=== PATIENT | female | born 1990 | race Caucasian/White ===

== ENCOUNTER 2025-04-02 13:14 | Inpatient (IN) | payer OTHER, SELFPAY ==
[2025-04-02] VITALS (9 sets, daily range): BP systolic 91–134; BP diastolic 50–63; PULSE 65–133; RESP 15–18; TEMP 36.5–38.4; O2SAT 97–100; BMI 34.6
--- NOTE | ~2025-04-02 | CT_ITS ---
CLINICAL HISTORY: diffuse abdominal pain, white count CT abdomen and pelvis with contrast Comparison: None provided Findings: CT abdomen: Trace bilateral pleural effusions with minimal linear atelectasis within the dependent portion of the lower lobes bilaterally. No focal bony lesions. Liver is enlarged measuring 25 cm in long axis. Focal fatty infiltration seen within the left lobe of the liver adjacent to the falciform ligament. No concerning hepatic mass lesions. Main portal vein is patent. Gallbladder surgically absent. Spleen, pancreas, and adrenal glands are unremarkable for acute findings. There slightly diminished enhancement throughout the left kidney. There is a 2 mm calculus within the upper pole of the left kidney without hydronephrosis. No ureteral calculi identified. Diffuse perinephric stranding tracking along the left retroperitoneum. Perinephric stranding is also seen surrounding the right kidney. No stones or hydronephrosis of the right kidney. No ureteral calculi. Small bowel loops are of normal caliber. No free air. CT pelvis: No bladder calculi identified. No significant bladder wall thickening. No focal areas of colonic wall thickening are identified. No findings of appendicitis. No adnexal masses. Trace free pelvic fluid. No free air. Impression: Slightly diminished enhancement of the left kidney with bilateral perinephric stranding, [id number]. This raises the possibility of bilateral pyelonephritis. Clinical correlation advised. This document has been electronically signed by: Bonilla Proctor MD on 04/02/2025 16:30:48
--- NOTE | 2025-04-02 13:24 | ECG_ITS ---
Test Reason : ELEVATED HR Blood Pressure : */* mmHG Vent. Rate : 134 BPM Atrial Rate : 134 BPM P-R Int : 132 ms QRS Dur : 78 ms QT Int : 274 ms P-R-T Axes : 60 19 240 degrees QTcB Int : 409 ms Sinus tachycardia Precordial T wave inversions-ischemia vs PE Abnormal ECG No previous ECGs available Referred By: Generic ED Physician Electronically Signed By: Jorge Luis Mott
--- NOTE | 2025-04-02 13:31 | ED_ITS ---
HPI - General Adult General Chief complaint: Abdominal Pain Stated complaint: Pain in upper abd, shaking, had a fever of 104.2 Time Seen by Provider: 04/02/25 14:13 Source: patient Mode of arrival: ambulatory Limitations: no limitations History of Present Illness ED Provider: JENIFER KINNEY PA-C HPI narrative: 34 year old female with no significant phmx presents to the ED today for evaluation of abdominal pain x3 days. Her pain originally began 3 days ago however resolved soon after voiding. The pain returned the following day (yesterday), originally around her umbilicus however now the pain seems to be localized to her lower abdomen and right flank. Reports one episode of emesis last night. No nausea or vomiting since. Normal nonbloody BM this morning. Reports burning with urination. Admits to associated headache, dizziness, fever (TMAX 104F last night). No known sick contacts. Surgical history includes cholecystectomy. Related Data Allergies Allergy/AdvReac Type Severity Reaction Status Date / Time No Known Allergies Allergy Verified 04/02/25 13:23 Review of Systems 2 Review of Systems: Yes all other systems are reviewed and are negative PMFSH Past Medical History Attestation statement: The following information was validated with the patient. Source: old records reviewed and nursing notes reviewed Social History Social History Smoked in Last 30 Days: No Use of substances other than those prescribed or required for medical reasons: No Advance Directives: No Advance Directives Information Provided: Yes Do you have a plan to hurt others: No Plan Patient : No Physical Exam ED Vital Signs: Vital Signs - 24 hr 04/02/25 13:19 04/02/25 15:57 04/02/25 16:07 Temperature 101.1 F H 101 F H 101.0 F H Pulse Rate 133 H 107 H Respiratory Rate 18 Blood Pressure 134/63 97/52 L Pulse Oximetry 99 Oxygen Delivery Method Room Air 04/02/25 16:41 04/02/25 17:17 Temperature 98.7 F Pulse Rate 103 H Respiratory Rate Blood Pressure 107/51 L Pulse Oximetry Oxygen Delivery Method BMI result Body Mass Index 34.6 febrile, tachycardic General: Well appearing, in no acute distress. Skin: Warm, dry, intact. No rashes or lesions. Head: Normocephalic, atraumatic. EENT: Hearing is intact b/l. Conjunctiva clear. Sclera is anicteric. PERRLA. EOM intact. Moist mucous membranes.? Neck: Supple without LAD. FROM. Trachea midline.? Cardiac: Chest wall symmetric. RRR Lungs: Normal respiratory effort without accessory muscle use. CTA bilaterally Abdomen: soft, ND/NT, no rebound/ guarding. negative parrish. negative rosving sign. no mcburney point tenderness. no CVAT b/l. Back: No midline spinous or paraspinal tenderness. No step off deformity. Ext: Upper and lower extremities atraumatic, without tenderness, deformity, swelling or erythema Neuro: AOx3. Normal speech. Ambulating with steady gait. Course Course Course Narrative: Rapid medical examination performed in triage by Mylene Ga PA-C. Patient is a 34 year old assigned female at presenting to the emergency department with abdominal pain, nausea, vomiting, and fever. Detailed physical exam and review of systems are deferred to the director of managed services. Labs ordered. Patient placed back in the waiting room pending room availability and results. Reevaluation(s) Reevaluation #1: 1440 -- CBC showing leukocytotis to 21.0 with left shift. no anemia, h&h stable. chemistry showing hypokalemia to 3, normal magnesium. no other acute electrolyte abnormality requiring intervention. no tahmina. liver function and lipase wnl. trop wnl. negative covid, flu,r sv. urine showing moderate blood + RBCs, moderate leukocyte esterase, 21-50 WBCs, 2+ urine bacteria however there is >20 squamous epithelial cells. it is unclear if this is a true UTI or contamination. will attempt to repeat sample. > patient meets SIRS criteria for sepsis at this time - lactic + blood cultures, IVF, IV abx ordered. > IV tylenol ordered for fever/ pain > IV potassium repletion ordered 1753 -- ct a/p showing findings concerning for bilateral pyelonephritis. discussed work up results with patient. her temp has improved with tylenol and toradol. discussed case with hospitalist sofy weir who has accepted patient admission to medicine. patient agreeable. Medications Administered Generic Name Dose Route Start Last Admin Trade Name Freq PRN Reason Stop Dose Admin Potassium Chloride 10 meq in 100 mls @ 100 mls/hr 04/02/25 14:45 04/02/25 17:32 Potassium Chloride/H20 IV 04/02/25 18:44 100 mls/hr Q1H JACK Administration Sodium Chloride 1,000 mls @ 999 mls/hr 04/02/25 17:00 04/02/25 17:00 Ns IV 04/02/25 18:00 999 mls/hr .Q1H1M JACK Administration Discontinued Medications Generic Name Dose Route Start Last Admin Trade Name Freq PRN Reason Stop Dose Admin Ceftriaxone Sodium 1 gm 04/02/25 14:45 04/02/25 14:56 Ceftriaxone Sodium 1 Gm Vial IVPUSH 04/02/25 14:46 1 gm ONCE ONE Administration Sodium Chloride 1,000 mls @ 999 mls/hr 04/02/25 14:30 04/02/25 15:50 Ns IV 04/02/25 15:30 Infused .Q1H1M JACK Infusion Acetaminophen 1,000 mg in 100 mls @ 400 mls/hr 04/02/25 14:34 04/02/25 15:27 Ofirmev IV 04/02/25 14:48 Infused ONCE ONE Infusion Iohexol 100 ml 04/02/25 15:23 04/02/25 15:23 Iohexol 350 Mg/Ml 100 Ml Infus..Btl IV 04/02/25 15:24 85 ml ONCE ONE Administration Ketorolac Tromethamine 30 mg 04/02/25 17:06 04/02/25 17:18 Ketorolac Tromethamine 30 Mg/Ml Vial IVPUSH 04/02/25 17:07 30 mg ONCE ONE Administration Medical Decision Making Medical Decision Making MDM Narrative: 34 year old female with no significant pmhx presents to the ED today for evaluation of abdominal pain x3 days. she is tachycardic, febrile. she is generally well appearing, warm to the touch. her abdomen is soft, ND/NT, no rebound/ guarding. negative parrish. negative rovsing sign. no mcburney point tenderness. Differential diagnoses: appendicitis, diverticulitis, diverticulosis, UTI, IUP, constipation, pyelonephritis. Abdominal exam without peritoneal signs. No evidence of acute abdomen at this time. Well appearing. Low suspicion for acute infectious processes (pneumonia, hepatitis, PID, TOA), vascular catastrophe, bowel obstruction or viscus perforation, ovarian cyst/ rupture/ torsion, ectopic. Presentation not consistent with other acute, emergent causes of abdominal pain at this time. Plan: labs, UA, CT AP, pain control, fluids, serial reassessment Differential Diagnosis Differential Diagnoses: The differential diagnosis associated with the presentation includes as above. Admission/Observation Consideration of admission/observation: Escalation of care including admission/observation considered Patient to be admitted to medicine for management of bilateral pyelonephritis, sepsis. Consult Healthcare Provider Management of the patient was discussed with: Hospitalist (destin [facility]) Lab Data MDM Lab Attestation statement: I reviewed the patient's lab results. as above 04/02/25 13:51 04/02/25 13:51 Labs: Lab Results 04/02/25 04/02/25 Range/Units 13:51 14:46 WBC 21.0 H (4.8-10.8) X10*3/uL RBC 4.38 (4.20-5.50) X10*6/uL Hgb 13.3 (12.0-16.0) g/dl Hct 38.8 (37.0-47.0) % MCV 88.6 (80.0-98.0) fL MCH 30.4 (27.0-33.0) pg MCHC 34.3 (31.0-35.0) g/dl RDW 13.8 (11.0-16.0) % Plt Count 199 (160-400) X10*3/uL MPV 11.2 (9.4-12.3) fL Immature Gran % (Auto) 0.7 H (0.0-0.4) % Neut % (Auto) 90.3 H (45-73) % Lymph % (Auto) 3.0 L (20-40) % [place] % (Auto) 5.6 (2-11) % Eos % (Auto) 0.0 (0-4) % Baso % (Auto) 0.4 (0-2) % Lymph # (Auto) 0.6 L (1.2-4.9) X10*3/uL [place] # (Auto) 1.2 (0.1-1.2) X10*3/uL Eos # (Auto) 0.0 (0.0-0.4) X10*3/uL Baso # (Auto) 0.1 (0.0-0.2) X10*3/uL Abs Immat Gran (auto) 0.14 H (0.00-0.03) X10*3/uL Absolute Neuts (auto) 19.0 H (2.0-8.3) x10*3/uL Absolute Nucleated RBC 0.000 (0.0-0.012) X10*3/uL Nucleated RBC % (auto) 0.0 (0.0-0.2) /100WBC Smear Tech's Comments VERIFIED Sodium 140 (135-145) mmol/L Potassium 3.0 L (3.3-5.1) mmol/L Chloride 102 (96-108) mmol/L Carbon Dioxide 25 (22-29) mmol/L Anion Gap 16 (12-20) BUN 12 (9-16) mg/dL Creatinine 0.96 (0.5-1.4) mg/dL Estim Creat Clear Calc 88.0 Estimated GFR > 60 Random Glucose 103 (60-115) mg/dL Lactic Acid 1.5 (0.5-2.0) mmol/L Calcium 8.8 (8.4-10.2) mg/dL Magnesium 1.7 (1.6-2.6) mg/dL Total Bilirubin 0.9 (0.0-1.0) mg/dL AST 20 (5-31) U/L ALT 13 (0-31) U/L Alkaline Phosphatase 79 (39-117) U/L Troponin I High Sens 5.7 (<3.5-17.0) ng/L Total Protein 7.0 (6.5-8.0) g/dL Albumin 4.0 (3.5-5.0) g/dL Lipase 14 (8-78) U/L Beta HCG, Quant < 2 mIU/mL Urine Color Yellow Urine Appearance Cloudy Urine pH 6.0 (5.0-9.0) Ur Specific [place] 1.015 (1.005-1.025) Urine Protein 100 (2+) H (Neg-Trace) mg/dL Urine Glucose (UA) Negative (Negative) mg/dL Urine Ketones Trace (Negative) mg/dL Urine Blood Moderate (2+) H (Negative) Urine Nitrite Negative (Negative) Ur Leukocyte Esterase Moderate (2+) H (Negative) Urine RBC 3-5 H (0-2) /HPF Urine WBC 21-50 (0-5) /HPF Ur Squamous Epith Cells >20 (0-2) /HPF Urine Bacteria 2+ (None Seen) Hyaline Casts 0-2 (0-2) /LPF Influenza Type A (PCR) NEGATIVE (Negative) Influenza Type B (PCR) NEGATIVE (Negative) RSV RNA Qual (PCR) NEGATIVE (Negative) SARS-CoV-2 RNA (RT-PCR) NEGATIVE (Negative) Independent Interpretation I performed an independent interpretation of an: EKG and CT Scan Interpretation: CT a/p showing b/l perinephric stranding ekg showing sinus tachycardia with a rate of 134 bpm, no acute ischemic changes or st elevations Radiology Impression Discussion of test interpretation with radiology: I have reviewed the radiologist's reading. Radiologist Impression: Date of Service: 04/02/25 Procedure(s): ECG 12 lead EKG Accession Number(s): [id number] cc: ~ Test Reason : ELEVATED HR Blood Pressure : */* mmHG Vent. Rate : 134 BPM Atrial Rate : 134 BPM P-R Int : 132 ms QRS Dur : 78 ms QT Int : 274 ms P-R-T Axes : 60 19 240 degrees QTcB Int : 409 ms Sinus tachycardia Anterior infarct , age undetermined T wave abnormality, consider inferolateral ischemia Abnormal ECG No previous ECGs available Date of Service: 04/02/25 Procedure(s): CT abdomen pelvis w IV con Accession Number(s): [id number] cc: Jenifer Kinney; Tracy Kapoor MD~ Report Number: [id number]: Total DLP = 707.00 mGy-cm CLINICAL HISTORY: diffuse abdominal pain, white count CT abdomen and pelvis with contrast Comparison: None provided Findings: CT abdomen: Trace bilateral pleural effusions with minimal linear atelectasis within the dependent portion of the lower lobes bilaterally. No focal bony lesions. Liver is enlarged measuring 25 cm in long axis. Focal fatty infiltration seen within the left lobe of the liver adjacent to the falciform ligament. No concerning hepatic mass lesions. Main portal vein is patent. Gallbladder surgically absent. Spleen, pancreas, and adrenal glands are unremarkable for acute findings. There slightly diminished enhancement throughout the left kidney. There is a 2 mm calculus within the upper pole of the left kidney without hydronephrosis. No ureteral calculi identified. Diffuse perinephric stranding tracking along the left retroperitoneum. Perinephric stranding is also seen surrounding the right kidney. No stones or hydronephrosis of the right kidney. No ureteral calculi. Small bowel loops are of normal caliber. No free air. CT pelvis: No bladder calculi identified. No significant bladder wall thickening. No focal areas of colonic wall thickening are identified. No findings of appendicitis. No adnexal masses. Trace free pelvic fluid. No free air. Impression: Slightly diminished enhancement of the left kidney with bilateral perinephric stranding, [id number]. This raises the possibility of bilateral pyelonephritis. Clinical correlation advised. This document has been electronically signed by: Bonilla Proctor MD on 04/02/2025 16:30:48 Prescription Management I considered prescription management with: Pain Medication and Antibiotic Social Determinants Patient?s care significantly limited by Social Determinants of Health including: Other Social Determinant of Health Critical Care Time Critical Care Time Critical Care Time: Yes Total Critical Care Time: 33 Attestation: Critical care time in the amount of 33 minutes has been provided to the patient in terms of direct patient care, frequent reevaluation, consultation with hospitalist, review and interpretation of medical data and results, and management of potentially life-threatening conditions. This is all outside of any medical procedures. Discharge Plan Discharge Clinical Impression: Pyelonephritis, Sepsis, Hypokalemia Patient Disposition: Admitted As Inpatient Print Language: Japanese
[2025-04-02 13:59] LABS: Hematocrit 38.8 % (37.0-47.0); Hemoglobin 13.3 g/dl (12.0-16.0); Imm Gran Abs Auto 0.14 X10*3/uL (0.00-0.03); Imm Gran Pct Auto 0.7 % (0.0-0.4); Lymphocytes Absolute Auto 0.6 X10*3/uL (1.2-4.9); MANUAL DIFF FLAG SCAN; Mean Corpuscular HGB Conc 34.3 g/dl (31.0-35.0); Mean Corpuscular Hemoglobin 30.4 pg (27.0-33.0); Mean Corpuscular Volume 88.6 fL (80.0-98.0); NRBC Abs Auto 0.000 X10*3/uL (0.0-0.012); NRBC Pct Auto 0.0 /100WBC (0.0-0.2); Platelet Count 199 X10*3/uL (160-400); Red Blood Count 4.38 X10*6/uL (4.20-5.50); SCAN SMEAR FLAG 1; White Blood Count 21.0 X10*3/uL (4.8-10.8)
[2025-04-02 14:01] LABS: Appearance Urine Cloudy; Glucose Urine UA Negative (Negative); PH 6.0 (5.0-9.0); Specific Gravity - Urine 1.015 (1.005-1.025); UMIC TRIGGER UACC YES
[2025-04-02 14:14] LABS: Lipase 14 U/L (8-78)
[2025-04-02 14:16] LABS: UACC Culture Trigger YES
[2025-04-02 14:24] LABS: Alanine Aminotransferase 13 U/L (0-31); Albumin Level 4.0 g/dL (3.5-5.0); Alkaline Phosphatase 79 U/L (39-117); Anion Gap 16 (12-20); Aspartate Amino Transferase 20 U/L (5-31); Blood Urea Nitrogen 12 mg/dL (9-16); Calcium 8.8 mg/dL (8.4-10.2); Carbon Dioxide 25 mmol/L (22-29); Chloride 102 mmol/L (96-108); Creatinine Clr Calc Pharmacy 88.0; Estimated Glomerular Filt Rate > 60; Magnesium 1.7 mg/dL (1.6-2.6); Potassium 3.0 mmol/L (3.3-5.1); Sodium 140 mmol/L (135-145); Total Protein 7.0 g/dL (6.5-8.0)
[2025-04-02 14:26] LABS: Troponin-I High Sensitivity 5.7 ng/L (<3.5-17.0)
[2025-04-02 14:37] LABS: Resp Syncy Virus RNA Qual PCR NEGATIVE (Negative); SARS COV2 PCR INHOUSE NEGATIVE (Negative)
--- OUTSIDE RECORDS SUMMARY | 2025-04-02 14:53 | XMS_ITS ---
Author Name [facility] Organization Unknown Encounters Encounter Type Encounter Reason Primary Diagnosis Location Date Ambulatory [facility] SHAY Esposito 03/30/2025
[2025-04-02] MEDS: iohexoL 350 MG/ML 100 ML INFUS..BTL IV (15:23)
[2025-04-02] MEDS: Potassium Chloride/H20 10 MEQ/100 ML PIGGYBACK 100 MEQ IV ×4 (15:28→18:40)
--- NOTE | 2025-04-02 18:01 | P.HPHOSP_ITS ---
History of Present Illness Date of Service: 04/02/25 Attending physician on admission: Usman Winston Chief Complaint: Fever, abdominal pain This is a 34-year-old female with no significant past medical history presents to the emergency department with fever and abdominal pain. Patient states that she had dysuria 3 days ago which resolved but then she developed abdominal pain with associated nausea. She also reports a fever. She currently denies any dysuria or polyuria. Her pain is in her abdomen is generalized. In the emergency department she was tachycardic with a heart rate of 133 on arrival with a fever of 101.1. Lab work significant for leukocytosis of 21. Urinalysis consistent with UTI. She underwent CAT scan of the abdomen and pelvis which showed bilateral perinephric stranding left greater than right raising possibility of bilateral pyelonephritis. She received IV Tylenol Toradol and ceftriaxone. She also also noted to have hypokalemia with a potassium of 3.0 and she received IV replacement. Due to sepsis from pyelonephritis the patient will be admitted for further management. Review of Systems 2 Review of Systems: Yes all other systems are reviewed and are negative Constitutional: Constitutional: Reports chills and Reports fever(s) Cardiovascular: Cardiovascular: Denies chest pain Gastrointestinal: Gastrointestinal: Reports abdominal pain, Denies diarrhea and Reports nausea PMFSH Surgical History (Updated 04/02/25 @ 18:07 by NEHEMIAH Reyez) History of cholecystectomy Social History Smoked in Last 30 Days: No Use of substances other than those prescribed or required for medical reasons: No Advance Directives: No Advance Directives Information Provided: Yes Do you have a plan to hurt others: No Plan Patient : No Meds Allergies Allergy/AdvReac Type Severity Reaction Status Date / Time No Known Allergies Allergy Verified 04/02/25 13:23 Active Medications: Current Medications Potassium Chloride (Potassium Chloride/H20) 10 meq in 100 mls @ 100 mls/hr IV Q1H JACK Stop: 04/02/25 18:44 Last Admin: 04/02/25 17:32 Dose: 100 mls/hr Physical Exam 2 Vital Signs and Narrative: Vital Signs: Last Vital Signs Temp 98.7 F 04/02/25 17:17 Pulse 103 H 08/10/25 16:41 Resp 18 04/02/25 13:19 BP 107/51 L 04/02/25 16:41 Pulse Ox 99 04/02/25 13:19 O2 Del Method Room Air 04/02/25 13:19 BMI result Body Mass Index 34.6 Const: General: cooperative, comfortable, alert and awake Nutritional Appearance: overweight Orientation/consciousness: patient oriented x3 Resp: Effort & Inspection: normal respiratory effort, able to speak in complete sentences, no respiratory distress and no use of accessory muscles Cardio: Rate: tachycardic GI: Inspection: No distended Palpation (GI): Soft to palpation : Other: R CVAT Neuro: General: patient oriented x3, moves all extremities and CN's II-XI intact bilaterally Results Labs 04/02/25 13:51 04/02/25 13:51 Labs: Laboratory Results - last 24 hr 04/02/25 04/02/25 13:51 14:46 MCV 88.6 MCH 30.4 MCHC 34.3 RDW 13.8 Plt Count 199 MPV 11.2 Immature Gran % (Auto) 0.7 H Neut % (Auto) 90.3 H Lymph % (Auto) 3.0 L [place] % (Auto) 5.6 Eos % (Auto) 0.0 Baso % (Auto) 0.4 Lymph # (Auto) 0.6 L [place] # (Auto) 1.2 Eos # (Auto) 0.0 Baso # (Auto) 0.1 Abs Immat Gran (auto) 0.14 H Absolute Neuts (auto) 19.0 H Absolute Nucleated RBC 0.000 Nucleated RBC % (auto) 0.0 Smear Tech's Comments VERIFIED Anion Gap 16 Estim Creat Clear Calc 88.0 Estimated GFR > 60 Random Glucose 103 Lactic Acid 1.5 Calcium 8.8 Magnesium 1.7 Total Bilirubin 0.9 AST 20 ALT 13 Alkaline Phosphatase 79 Total Protein 7.0 Albumin 4.0 Lipase 14 Beta HCG, Quant < 2 Urine Color Yellow Urine Appearance Cloudy Urine pH 6.0 Ur Specific [place] 1.015 Urine Protein 100 (2+) H Urine Glucose (UA) Negative Urine Ketones Trace Urine Blood Moderate (2+) H Urine Nitrite Negative Ur Leukocyte Esterase Moderate (2+) H Urine RBC 3-5 H Urine WBC 21-50 Ur Squamous Epith Cells >20 Urine Bacteria 2+ Hyaline Casts 0-2 Influenza Type A (PCR) NEGATIVE Influenza Type B (PCR) NEGATIVE RSV RNA Qual (PCR) NEGATIVE SARS-CoV-2 RNA (RT-PCR) NEGATIVE Assessment and Plan (1) Pyelonephritis: Status: Acute (2) Sepsis: Status: Acute (3) Hypokalemia: Status: Acute Plan This is a 34-year-old female with no significant past medical history who presents to the emergency department with fever and abdominal pain found to have sepsis and pyelonephritis Sepsis due to pyelonephritis Meets sepsis criteria with fever, leukocytosis, tachycardia. Lactic acid normal, no severe features CT scan concerning for bilateral pyelonephritis Continue IV ceftriaxone Follow results of urine cultures and blood cultures IVF Hypokalemia Received 40 IV potassium replacement in ED Repeat BMP in a.m. Class 1 obesity BMI 34.6 Weight loss encouraged dvt ppx - early ambulation, mechanical devices Patient will likely require 2 midnight stay in the hospital for management of pyelonephritis/sepsis requiring IV antibiotics Quality Stroke Does the patient have a stroke diagnosis?: No VTE Prior VTE?: No VTE Risk Level:: Medical - moderate - high VTE Device Contraindication: N/A - Device Ordered VTE Drug Contraindication: Treatment Not Indicated
--- NOTE | 2025-04-02 18:26 | PHA.MEDREC ---
Pharmacy Consult ? Medication Reconciliation Pharmacy has completed the medication reconciliation. patient states she is only taking Sertraline HCl 200 mg (2x 100mg) at bedtime, last fill date was for Sertraline 100 mg daily 06/28/24.
--- NOTE | 2025-04-02 18:35 | PC.NURSE ---
Sepsis worksheet submitted to ED control panel operator crude unit.
[2025-04-02] MEDS: Lactated Ringers 1,000 ML 125 ML IVCONT (21:02)
[2025-04-03] VITALS (8 sets, daily range): BP systolic 97–113; BP diastolic 53–63; PULSE 66–93; RESP 16–20; TEMP 36.6–38; O2SAT 95–98; BMI 34.3
[2025-04-03] MEDS: Lactated Ringers 1,000 ML 125 ML IVCONT ×3 (05:26→18:03)
[2025-04-03] MEDS: 0.9 % Sodium Chloride Flush 3 ML SYRINGE IVFLUSH (05:28)
[2025-04-03 05:32] LABS: MANUAL DIFF FLAG NO
[2025-04-03 05:33] LABS: Hematocrit 30.8 % (37.0-47.0); Hemoglobin 10.4 g/dl (12.0-16.0); Imm Gran Abs Auto 0.07 X10*3/uL (0.00-0.03); Imm Gran Pct Auto 0.5 % (0.0-0.4); Lymphocytes Absolute Auto 1.0 X10*3/uL (1.2-4.9); Mean Corpuscular HGB Conc 33.8 g/dl (31.0-35.0); Mean Corpuscular Hemoglobin 30.3 pg (27.0-33.0); Mean Corpuscular Volume 89.8 fL (80.0-98.0); NRBC Abs Auto 0.000 X10*3/uL (0.0-0.012); NRBC Pct Auto 0.0 /100WBC (0.0-0.2); Platelet Count 154 X10*3/uL (160-400); Red Blood Count 3.43 X10*6/uL (4.20-5.50); White Blood Count 14.0 X10*3/uL (4.8-10.8)
[2025-04-03 05:48] LABS: Anion Gap 10 (12-20); Blood Urea Nitrogen 11 mg/dL (9-16); Calcium 7.6 mg/dL (8.4-10.2); Carbon Dioxide 23 mmol/L (22-29); Chloride 110 mmol/L (96-108); Creatinine Clr Calc Pharmacy 108.4; Estimated Glomerular Filt Rate > 60; Potassium 3.0 mmol/L (3.3-5.1); Sodium 140 mmol/L (135-145)
[2025-04-03] MEDS: Potassium Chloride ER 20 MEQ TAB.ER.PRT 40 MEQ PO (08:40)
--- NOTE | 2025-04-03 09:57 | MHC.CM.PN ---
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
--- NOTE | 2025-04-03 11:07 | HO.PM.IMPN ---
Subjective Subjective Date of Service: 04/03/25 Interval History: bacteremia Review of Systems no new c/o has bactermia abd pain improving Review of Systems: Yes all other systems are reviewed and are negative Physical Exam Exam: Exam: Appearance: Alert.? Oriented X3.? cvs: [id number], [id number]. res: clear to auscultation ,no rhonchii or wheezing abd: no rebound or guarding ,nt, bs present. ext pulses present , no cyanosis. gu: rcva tenderness neuro: axo3 , nonfocal. Vital Signs: Vital Signs: Last Vital Signs Temp 97.9 F 04/03/25 09:36 Pulse 76 04/03/25 09:36 Resp 16 04/03/25 09:36 BP 98/54 L 04/03/25 09:36 Pulse Ox 98 04/03/25 09:36 O2 Del Method Room Air 04/03/25 09:36 BMI result Body Mass Index 34.3 Objective Data Active Medications Acetaminophen (Acetaminophen 325 Mg Tablet) 650 mg PO Q6H PRN PRN Reason: Pain, Mild 1-3,fever,headache Last Admin: 04/03/25 05:21 Dose: 650 mg Documented By: RACHEL Calcium Carbonate (Calcium Carbonate 750 Mg Tab.Chew) 750 mg PO Q4H PRN PRN Reason: Heartburn Ceftriaxone Sodium (Ceftriaxone Sodium 2 Gm Vial) 2 gm IVPUSH Q24H JACK Lactated Ringer's (Lr) 1,000 mls @ 125 mls/hr IVCONT .Q8H JACK Last Admin: 04/03/25 05:26 Dose: 125 mls/hr Documented By: RACHEL Ketorolac Tromethamine (Ketorolac Tromethamine 30 Mg/Ml Vial) 15 mg IVPUSH Q6H PRN PRN Reason: Pain, Moderate(Pain Scale 4-6) Last Admin: 04/03/25 08:44 Dose: 15 mg Documented By: GINGER Magnesium Hydroxide (Milk Of Magnesia 30 Ml Oral.Susp) 30 ml PO DAILY PRN PRN Reason: Constipation Melatonin (Melatonin 3 Mg Tablet) 6 mg PO BEDTIME PRN PRN Reason: Insomnia Last Admin: 04/03/25 01:45 Dose: 6 mg Documented By: RACHEL Morphine Sulfate (Morphine Sulfate 4 Mg/Ml Cartridge) 2 mg IVPUSH Q4H PRN; Protocol PRN Reason: Pain, Severe (Pain Scale 7-10) Ondansetron HCl (Ondansetron Hcl 4 Mg/2 Ml Vial) 4 mg IVPUSH Q8H PRN PRN Reason: Nausea and Vomiting Sodium Chloride (0.9 % Sodium Chloride Flush 3 Ml Syringe) 3 ml IVFLUSH QSHIFT JACK Last Admin: 04/03/25 08:31 Dose: Not Given Documented By: GINGER Non-Admin Reason: IV Running Labs 04/03/25 05:16 04/03/25 05:16 Labs: Laboratory Results - last 24 hr 04/02/25 04/02/25 04/03/25 13:51 14:46 05:16 MCV 88.6 89.8 MCH 30.4 30.3 MCHC 34.3 33.8 RDW 13.8 14.3 Plt Count 199 154 L MPV 11.2 11.8 Immature Gran % (Auto) 0.7 H 0.5 H Neut % (Auto) 90.3 H 85.1 H Lymph % (Auto) 3.0 L 7.1 L [place] % (Auto) 5.6 6.4 Eos % (Auto) 0.0 0.7 Baso % (Auto) 0.4 0.2 Lymph # (Auto) 0.6 L 1.0 L [place] # (Auto) 1.2 0.9 Eos # (Auto) 0.0 0.1 Baso # (Auto) 0.1 0.0 Abs Immat Gran (auto) 0.14 H 0.07 H Absolute Neuts (auto) 19.0 H 11.9 H Absolute Nucleated RBC 0.000 0.000 Nucleated RBC % (auto) 0.0 0.0 Smear Tech's Comments VERIFIED Anion Gap 16 10 L Estim Creat Clear Calc 88.0 108.4 Estimated GFR > 60 > 60 Random Glucose 103 132 H Lactic Acid 1.5 Calcium 8.8 7.6 L D Magnesium 1.7 Total Bilirubin 0.9 AST 20 ALT 13 Alkaline Phosphatase 79 Total Protein 7.0 Albumin 4.0 Lipase 14 Beta HCG, Quant < 2 Urine Color Yellow Urine Appearance Cloudy Urine pH 6.0 Ur Specific [place] 1.015 Urine Protein 100 (2+) H Urine Glucose (UA) Negative Urine Ketones Trace Urine Blood Moderate (2+) H Urine Nitrite Negative Ur Leukocyte Esterase Moderate (2+) H Urine RBC 3-5 H Urine WBC 21-50 Ur Squamous Epith Cells >20 Urine Bacteria 2+ Hyaline Casts 0-2 Influenza Type A (PCR) NEGATIVE Influenza Type B (PCR) NEGATIVE RSV RNA Qual (PCR) NEGATIVE SARS-CoV-2 RNA (RT-PCR) NEGATIVE Microbiology Microbiology Results: Microbiology 04/02/25 14:46 Blood Culture - Preliminary Blood - Venous Prelim: GNR Gram Stain only 04/02/25 14:46 Blood Culture - Preliminary Blood - Venous Prelim: GNR Gram Stain only Assessment and Plan (1) Hypokalemia: Status: Acute (2) Pyelonephritis: Status: Acute (3) Sepsis: Status: Acute Assessment and Plan: 34-year-old female with no significant past medical history who presents to the emergency department with fever and abdominal pain found to have sepsis and pyelonephritis Sepsis due to pyelonephritis leucocytosis improivng Met sepsis criteria with fever, leukocytosis, tachycardia. Lactic acid normal, no severe features CT scan concerning for bilateral pyelonephritis Continue IV ceftriaxone,IVF. urine cultures and blood cultures-gram negative rods. Id eval. acute Hypokalemia added po poatssium Class 1 obesity BMI 34.6 Weight loss encouraged dvt ppx - early ambulation, mechanical devices ongoing need for stay: hospital for management of pyelonephritis/sepsis requiring IV antibiotics Quality Stroke Does the patient have a stroke diagnosis?: No VTE Prior VTE?: No VTE Risk Level:: Medical - moderate - high VTE Device Contraindication: N/A - Device Ordered VTE Drug Contraindication: Treatment Not Indicated
--- NOTE | 2025-04-03 11:34 | P.CDIM_ITS ---
PROVIDER RESPONSE TEXT: To clarify, the appropriate diagnosis supported by the clinical indicators: Acute QUERY TEXT: PHYSICIAN'S DOCUMENTATION REQUEST Date of Query: 04/03/2025 11:20 AM EDT Patient Name: Keyonna Georges Admit Date: 04/02/2025 Dear Usman Winston MD, A review of the medical record indicates additional documentation may be needed. Please review below and update the documentation accordingly. Clinical Indicators: Progress note dated 04/03/25 - Plan: Sepsis due to pyelonephritis Met sepsis criteria with fever, leukocytosis, tachycardia. LA normal, no severe features. IV Ceftriaxone, IVF Please clarify which of the following accurately represents the acuity/specifics of the noted Pyelonephritis within the Plan of your progress note: Acute Chronic Calculous Nonobstructive Other specified Other (explain) Clinically unable to determine (explain) Thank you, Tish Lawson, CCS, CDIS Use of terms such as suspected, likely, concern for, or probable (associated with a specific diagnosis that is being evaluated, monitored, or treated as if it exists) are acceptable and can be coded in the inpatient setting, when documented at the time of discharge. Please use your independent medical judgment in providing your response. THIS QUERY IS PART OF THE PERMANENT MEDICAL RECORD
--- NOTE | 2025-04-03 14:03 | P.CNID_ITS ---
History of Present Illness Data of Consult Service Date: 04/03/25 Requesting physician: Usman Winston Primary Care Provider: Tracy Kapoor MD HPI Reason for consult: sepsis She presents with three days nausea and some dry heaves. She had temperature 101.4 as well as tachycardia. Blood and urine cultures gram negative rods. Review of Systems 2 Review of Systems: Yes all other systems are reviewed and are negative PMFSH Past Medical History Medical History (Updated 04/03/25 @ 14:07 by Gaby Jay MD) Sepsis Family History Family history: reviewed and not pertinent Surgical History Surgical History History of cholecystectomy Social History Social History Household Members: Family Housing: House Do you presently have visiting nurse or other home services: No Patient Tobacco Use Status: Never used Tobacco service: No Meds Allergies Allergy/AdvReac Type Severity Reaction Status Date / Time No Known Allergies Allergy Verified 04/02/25 13:23 Active Medications: Current Medications Acetaminophen (Acetaminophen 325 Mg Tablet) 650 mg PO Q6H PRN PRN Reason: Pain, Mild 1-3,fever,headache Last Admin: 04/03/25 05:21 Dose: 650 mg Calcium Carbonate (Calcium Carbonate 750 Mg Tab.Chew) 750 mg PO Q4H PRN PRN Reason: Heartburn Ceftriaxone Sodium (Ceftriaxone Sodium 2 Gm Vial) 2 gm IVPUSH Q24H [facility] Last Admin: 04/03/25 13:08 Dose: 2 gm Lactated Ringer's (Lr) 1,000 mls @ 125 mls/hr IVCONT .Q8H JACK Last Admin: 04/03/25 11:54 Dose: 125 mls/hr Ketorolac Tromethamine (Ketorolac Tromethamine 30 Mg/Ml Vial) 15 mg IVPUSH Q6H PRN PRN Reason: Pain, Moderate(Pain Scale 4-6) Last Admin: 04/03/25 08:44 Dose: 15 mg Magnesium Hydroxide (Milk Of Magnesia 30 Ml Oral.Susp) 30 ml PO DAILY PRN PRN Reason: Constipation Melatonin (Melatonin 3 Mg Tablet) 6 mg PO BEDTIME PRN PRN Reason: Insomnia Last Admin: 04/03/25 01:45 Dose: 6 mg Morphine Sulfate (Morphine Sulfate 4 Mg/Ml Cartridge) 2 mg IVPUSH Q4H PRN; Protocol PRN Reason: Pain, Severe (Pain Scale 7-10) Ondansetron HCl (Ondansetron Hcl 4 Mg/2 Ml Vial) 4 mg IVPUSH Q8H PRN PRN Reason: Nausea and Vomiting Sodium Chloride (0.9 % Sodium Chloride Flush 3 Ml Syringe) 3 ml IVFLUSH QSHIFT [facility] Last Admin: 04/03/25 11:54 Dose: Not Given Home Medications ?Medication ?Instructions ?Recorded ?Confirmed ?Last Taken ?Type sertraline 100 mg tablet 200 mg PO BEDTIME 04/02/25 0 04/02/25 03/31/25 History Physical Exam 2 Vital Signs: Vital Signs: Last Vital Signs Temp 97.9 F 04/03/25 09:36 Pulse 76 04/03/25 09:36 Resp 16 04/03/25 09:36 BP 98/54 L 04/03/25 09:36 Pulse Ox 98 04/03/25 09:36 O2 Del Method Room Air 04/03/25 09:36 BMI result Body Mass Index 34.3 Const: General: cooperative HEENT: Head: Yes normal to inspection Face and sinus: Yes normal facial exam Mouth: Normal oral and palatal mucosa present Teeth and gingiva: d entition normal Eyes: General: appearance normal, both eyes and all related structures P upils: Equal, round and reactive pupils present Resp: Effort & Inspection: normal respiratory effort Cardio: Rate: regular rate Rhythm: regular rhythm GI: Other: pain right epigastric area Palpation (GI): Soft to palpation and nontender : General: Yes no CVA tenderness Back/Spine/Pelvis: Back: no CVA tenderness Skin: General skin exam: no rashes or lesions noted Neuro: General: moves all extremities Cranial nerves: Yes Equal, round and reactive pupils present Extrem: General: Yes normal to inspection Psych: Appearance: grossly normal Results Labs 04/03/25 05:16 04/03/25 05:16 Labs: Short CBC 04/02/25 04/03/25 Range/Units 13:51 05:16 WBC 21.0 H 14.0 H (4.8-10.8) X10*3/uL Hgb 13.3 10.4 L D (12.0-16.0) g/dl Hct 38.8 30.8 L D (37.0-47.0) % Plt Count 199 154 L (160-400) X10*3/uL BMP 04/02/25 04/03/25 13:51 05:16 Sodium 140 140 Potassium 3.0 L 3.0 L Chloride 102 110 H Carbon Dioxide 25 23 BUN 12 11 Creatinine 0.96 0.78 Calcium 8.8 7.6 L D Liver Function 04/02/25 Range/Units 13:51 Total Bilirubin 0.9 (0.0-1.0) mg/dL AST 20 (5-31) U/L ALT 13 (0-31) U/L Alkaline Phosphatase 79 (39-117) U/L Albumin 4.0 (3.5-5.0) g/dL Urine 04/02/25 Range/Units 13:51 Urine Color Yellow Urine Appearance Cloudy Urine pH 6.0 (5.0-9.0) Ur Specific [place] 1.015 (1.005-1.025) Urine Protein 100 (2+) H (Neg-Trace) mg/dL Urine Glucose (UA) Negative (Negative) mg/dL Microbiology Microbiology Results: Microbiology 04/02/25 Unknown Urine clean catch - Clean Catch Midstream Urine Culture - Preliminary Gram negative jennifer 04/02/25 14:46 Blood - Venous Blood Culture - Preliminary Prelim: GNR Gram Stain only 04/02/25 14:46 Blood - Venous Blood Culture - Preliminary Prelim: GNR Gram Stain only Assessment and Plan (1) Sepsis: Status: Acute Plan She has gram negative sepsis due UTI,with E coli and Klebsiella suspect. Would await cultures and 14 d total antibiotics,po if able.
[2025-04-04] MEDS: Lactated Ringers 1,000 ML 125 ML IVCONT (01:34)
[2025-04-04 03:20] VITALS: BP 121/77; PULSE 87; RESP 18; TEMP 37.1; O2SAT 93
--- NOTE | 2025-04-04 05:41 | PC.NURSE ---
Pt seen alert and oriented, feverish at start of the shift and just had Tylenol PRN, temp subsided to WNL after. Pt also requested for her Sertraline , Dr. Chong was notified, med given. At around 3a, pt woke up with chest tightness 6/10 more on deep breathing and palpation, vitals WNL, LSC and dim, prn Toradol given, Dr. Chong was updated. Pt didnt feel relief on the Toradol, still c/o of chest tightness and feeling hard to breathe and crackly, still LSC, Dr. Barrett was made aware, IVF discont, pt supported,pt eventually fell asleep.
[2025-04-04] MEDS: 0.9 % Sodium Chloride Flush 3 ML SYRINGE IVFLUSH ×3 (07:11→21:09)
[2025-04-04 07:47] VITALS: BP 116/66; PULSE 77; RESP 12; TEMP 37.2; O2SAT 91
[2025-04-04 09:06] VITALS: O2SAT 95
[2025-04-04 09:21] LABS: Anion Gap 13 (12-20); Blood Urea Nitrogen 9 mg/dL (9-16); Calcium 8.4 mg/dL (8.4-10.2); Carbon Dioxide 22 mmol/L (22-29); Chloride 111 mmol/L (96-108); Creatinine Clr Calc Pharmacy 100.0; Estimated Glomerular Filt Rate > 60; Potassium 3.2 mmol/L (3.3-5.1); Sodium 143 mmol/L (135-145)
--- NOTE | 2025-04-04 13:26 | HO.PM.IMPN ---
Subjective Subjective Date of Service: 04/04/25 Interval History: gram negative bactermia ecoli -urine . Review of Systems no abd pain no fevers Review of Systems: Yes all other systems are reviewed and are negative Physical Exam Exam: Exam: Appearance: Alert.? Oriented X3.? cvs: [id number], [id number]. res: clear to auscultation ,no rhonchii or wheezing abd: no rebound or guarding ,nt, bs present. ext pulses present , no cyanosis. gu: rcva tenderness neuro: axo3 , nonfocal. Vital Signs: Vital Signs: Last Vital Signs Temp 98.9 F 04/04/25 07:47 Pulse 77 04/04/25 07:47 Resp 12 04/04/25 07:47 BP 116/66 04/04/25 07:47 Pulse Ox 95 04/04/25 09:06 O2 Del Method Room Air 04/04/25 09:06 BMI result Body Mass Index 34.3 Objective Data Active Medications Acetaminophen (Acetaminophen 325 Mg Tablet) 650 mg PO Q6H PRN PRN Reason: Pain, Mild 1-3,fever,headache Last Admin: 04/04/25 07:16 Dose: 650 mg Documented By: DABMarisela Calcium Carbonate (Calcium Carbonate 750 Mg Tab.Chew) 750 mg PO Q4H PRN PRN Reason: Heartburn Ceftriaxone Sodium (Ceftriaxone Sodium 2 Gm Vial) 2 gm IVPUSH Q24H [facility] Last Admin: 04/03/25 13:08 Dose: 2 gm Documented By: JAZZY Magnesium Hydroxide (Milk Of Magnesia 30 Ml Oral.Susp) 30 ml PO DAILY PRN PRN Reason: Constipation Melatonin (Melatonin 3 Mg Tablet) 6 mg PO BEDTIME PRN PRN Reason: Insomnia Last Admin: 04/03/25 23:58 Dose: 6 mg Documented By: CASTILMarilin Morphine Sulfate (Morphine Sulfate 4 Mg/Ml Cartridge) 2 mg IVPUSH Q4H PRN; Protocol PRN Reason: Pain, Severe (Pain Scale 7-10) Ondansetron HCl (Ondansetron Hcl 4 Mg/2 Ml Vial) 4 mg IVPUSH Q8H PRN PRN Reason: Nausea and Vomiting Last Admin: 04/03/25 18:07 Dose: 4 mg Documented By: JAZZY Sertraline HCl (Sertraline Hcl 100 Mg Tablet) 200 mg PO BEDTIME [facility] Last Admin: 04/03/25 22:44 Dose: 200 mg Documented By: CASTILM Sodium Chloride (0.9 % Sodium Chloride Flush 3 Ml Syringe) 3 ml IVFLUSH QSHIFT [facility] Last Admin: 04/04/25 07:11 Dose: 3 ml Documented By: KALA Labs 04/03/25 05:16 04/04/25 08:22 Labs: Laboratory Results - last 24 hr 04/04/25 08:22 Anion Gap 13 Estim Creat Clear Calc 100.0 Estimated GFR > 60 Random Glucose 111 Calcium 8.4 D Microbiology Microbiology Results: Microbiology 04/02/25 14:46 Blood Culture - Preliminary Blood - Venous Prelim: GNR Gram Stain only 04/02/25 14:46 Blood Culture - Preliminary Blood - Venous Gram negative jennifer 04/02/25 Unknown Urine Culture - Final Urine clean catch - Clean Catch Midstream Escherichia coli Assessment and Plan (1) Hypokalemia: Status: Acute (2) Pyelonephritis: Status: Acute (3) Sepsis: Status: Acute Assessment and Plan: 34-year-old female with no significant past medical history who presents to the emergency department with fever and abdominal pain found to have sepsis and pyelonephritis Sepsis due to pyelonephritis leucocytosis improivng Met sepsis criteria with fever, leukocytosis, tachycardia. Lactic acid normal, no severe features CT scan concerning for bilateral pyelonephritis Continue IV ceftriaxone,IVF. urine cultures-ecoli and blood cultures-gram negative jennifer-pending Id eval-continue iv antibiotics /await blood cultures . acute Hypokalemia added po poatssium Class 1 obesity BMI 34.6 Weight loss encouraged dvt ppx - early ambulation, mechanical devices ongoing need for stay: hospital for management of pyelonephritis/sepsis requiring IV antibiotics Quality Stroke Does the patient have a stroke diagnosis?: No VTE Prior VTE?: No VTE Risk Level:: Medical - moderate - high VTE Device Contraindication: N/A - Device Ordered VTE Drug Contraindication: Treatment Not Indicated
[2025-04-04 15:45] VITALS: BP 124/66; PULSE 67; RESP 16; TEMP 36.7; O2SAT 95
[2025-04-04 20:00] VITALS: BP 128/63; PULSE 75; RESP 16; TEMP 36.9; O2SAT 95
[2025-04-05 03:26] VITALS: BP 137/76; PULSE 86; RESP 18; TEMP 38.1; O2SAT 93
[2025-04-05] MEDS: 0.9 % Sodium Chloride Flush 3 ML SYRINGE IVFLUSH (07:15)
[2025-04-05 07:17] VITALS: BP 130/72; PULSE 66; RESP 12; TEMP 37; O2SAT 91
[2025-04-05] MEDS: Potassium Chloride ER 20 MEQ TAB.ER.PRT PO (09:24)
--- NOTE | 2025-04-05 10:29 | P.DS_ITS ---
DS: Providers Provider Date of Service: 04/05/25 Date of admission: 04/02/25 18:01 Date of discharge: 04/05/25 Primary care physician: Tracy Kapoor MD Consults: 04/03/25 11:15 Consult to Infectious Diseases Routine Consulting Provider: [facility] Reason for consultation: gram negative bacteremia Has provider been notified: No Attending physician on discharge: Usman Winston Discharging clinician: Usman Winston DS: Diagnosis Discharge Diagnosis (1) Hypokalemia: Status: Acute (2) Pyelonephritis: Status: Acute (3) Sepsis: Status: Acute DS: Summary Hospital Course Hospital Course: HPI:34-year-old female with no significant past medical history presents to the emergency department with fever and abdominal pain. Patient states that she had dysuria 3 days ago which resolved but then she developed abdominal pain with associated nausea. She also reports a fever. She currently denies any dysuria or polyuria. Her pain is in her abdomen is generalized. In the emergency department she was tachycardic with a heart rate of 133 on arrival with a fever of 101.1. Lab work significant for leukocytosis of 21. Urinalysis consistent with UTI. She underwent CAT scan of the abdomen and pelvis which showed bi lateral perinephric stranding left greater than right raising possibility of bilateral pyelonephritis. She received IV Tylenol Toradol and ceftriaxone. She also also noted to have hypokalemia with a potassium of 3.0 and she received IV replacement. Due to sepsis from pyelonephritis the patient will be admitted for further management. Hospital course: 34-year-old female with no significant past medical history who presents to the emergency department with fever and abdominal pain found to have sepsis and pyelonephritis Sepsis due to pyelonephritis leucocytosis improving ,CT scan concerning for bilateral pyelonephritis. Met sepsis criteria with fever, leukocytosis, tachycardia. Lactic acid normal, no severe features . started on IV ceftriaxone,IVF.urine and blood culture grew ecoli -senstive to ceftriaxone . Id eval appreciated and receomended for po ceftin 500 mg po bidx 2 weeks. mild anemia : h/h mild dilutional component due to fluids . denies any melena or any roby bleeding moniter cbc outpatient. acute Hypokalemia :added po poatssium. given limited po poassium supply. Above management discussed with the patient detail length she understand and in agreement with the above plan, time spent 45 minute, all question answered. Staff was present during conversation. Time Attestation Total time managing care of this patient today: 45 mintues. Discharge Coordination Time (in mins): 45 min Quality: Safe Use of Opioids Does Pt have an Active Cancer Diagnosis on the Problem List?: No Quality: Stroke Does the patient have a stroke diagnosis?: No Physical Exam Exam: Exam: Appearance: Alert.? Oriented X3.? cvs: rrr, [id number]. res: clear to auscultation ,no rhonchii or wheezing abd: no rebound or guarding ,nt, bs present. ext pulses present , no cyanosis. gu: rcva tenderness neuro: axo3 , nonfocal. Vital Signs: Vital Signs: Last Vital Signs Temp 98.6 F 04/05/25 07:17 Pulse 66 04/05/25 07:17 Resp 12 04/05/25 07:17 BP 130/72 04/05/25 07:17 Pulse Ox 91 L 04/05/25 07:17 O2 Del Method Room Air 04/05/25 07:17 BMI result Body Mass Index 34.3 DS: Data Imaging Chest x-ray: Radiologist's impression: Ct pelvis: Slightly diminished enhancement of the left kidney with bilateral perinephric stranding, [id number]. This raises the possibility of bilateral pyelonephritis. Clinical correlation advised. Discharge Plan Discharge Anticipated Discharge Date/Time: 04/05/25 10:21 Patient Disposition: Home, Self-Care Discharge Diagnosis: sepsis with uti. Referrals: Tracy Kapoor MD [Primary Care Provider, Family Practice] - 1 Week Discharge Medications: New cefuroxime axetil 500 mg Tablet 500 mg PO Q12H Qty: 27 0RF potassium chloride 10 mEq capsule, extended release 10 meq PO DAILY Qty: 4 0RF Continued sertraline 100 mg tablet 200 mg PO BEDTIME Discharge Orders: Discharge Order (Routine); Ordered 04/05/25 Ordered By: Usman Winston Diet: Advance to usual diet Activity on Discharge: As tolerated Stand Alone Forms: Patient Portal Discharge page Print Language: Citizen Of [place] Other Ambulatory Orders: Basic Metabolic Panel (Routine) Timeframe: 1 Week Facility: [facility] - Location: Laboratory Ordered By: Usman Winston Complete Blood Count no Diff (Routine) Timeframe: 1 Week Facility: [facility] - Location: Laboratory Ordered By: Usman Winston Care Plan Goals: as below. Health Concerns: moniter cbc ,bmp logan to leucocytosis /anemia and hypokalemia respectively. complete ceftin 500 mg po bid x 2weeks follow up outpatient . Plan of Treatment: as above. Assessment: as above.
--- NOTE | 2025-04-05 10:42 | MHC.CM.PN ---
DP: PT HAS BEEN MEDICALLY CLEARED FOR DC HOME, NO SERVICES. PT HAS OWN RIDE HOME.
== END 2025-04-05 11:33 | disposition home or self-care (01) | DRG 720 ==
LOC: HO.ED 17:57 → HO.EDOVER 18:20 → HO.S3 04-03 08:48
PROVIDERS: Physician Assistant Medical; Admitting Provider Physician Assistant Medical; Emergency Provider Emergency Medicine; PCP Family Medicine; Visit Provider Internal Medicine
DX: A41.9 Sepsis, unspecified organism (principal); D64.9 Anemia, unspecified; N10 Acute pyelonephritis; B96.20 Unspecified Escherichia coli [E. coli] as the cause of diseases classified elsewhere; E66.811 Obesity, class 1; E87.6 Hypokalemia; Z71.3 Dietary counseling and surveillance; Z68.34 Body mass index [BMI] 34.0-34.9, adult; Z20.822 Contact with and (suspected) exposure to COVID-19; Z79.899 Other long term (current) drug therapy
CPT/HCPCS: 36415; 74177; 80048; 80053; 81001; 81003; 83605; 83690; 83735; 84484; 84702; 85025; 87040; 87077; 87086; 87088; 87186; 87205; 87637; 93005; 99285; J0131; J0696; J1885; J2405; J3480; J7120; Q9967

== ENCOUNTER → 2025-04-02 13:24 | Outpatient (BNV) | payer OTHER, SELFPAY | PROVIDERS: Admitting Provider Physician Assistant Medical; Emergency Provider Emergency Medicine; PCP Family Medicine; Visit Provider Internal Medicine Cardiovascular Disease | DX: R00.0 Tachycardia, unspecified (principal) | CPT/HCPCS: 93010 ==

== ENCOUNTER → 2025-04-02 14:28 | Outpatient (BNV) | payer OTHER, SELFPAY | PROVIDERS: Emergency Provider Emergency Medicine; PCP Family Medicine; Visit Provider Radiology Diagnostic Radiology | DX: N20.0 Calculus of kidney (principal) | CPT/HCPCS: 74177 ==

== ENCOUNTER → 2025-04-02 18:01 | Outpatient (BNV) | payer OTHER, SELFPAY | PROVIDERS: Admitting Provider Physician Assistant Medical; Emergency Provider Emergency Medicine; PCP Family Medicine; Visit Provider Physician Assistant Medical | DX: E87.6 Hypokalemia (principal); N12 Tubulo-interstitial nephritis, not specified as acute or chronic; A41.9 Sepsis, unspecified organism | CPT/HCPCS: 99223; 99231; 99232 ==

== ENCOUNTER → 2025-04-02 18:01 | Outpatient (BNV) | payer OTHER, SELFPAY | PROVIDERS: Admitting Provider Physician Assistant Medical; Emergency Provider Emergency Medicine; PCP Family Medicine; Visit Provider Internal Medicine | DX: A41.9 Sepsis, unspecified organism (principal); N39.0 Urinary tract infection, site not specified | CPT/HCPCS: 99232 ==